=== PATIENT | female | born 2000 | race African-American/Black ===

== ENCOUNTER 2019-08-03 10:21 | Emergency (ER) | payer OTHER ==
[~2019-08-03] VITALS: Ht 180.3 cm; Wt 122.7 kg
[2019-08-03] MEDS ORDERED: IBUPROFEN 800 MG TABLET PO ONE (11:00)
[2019-08-03 11:40] LABS: INFLUENZA TYPE A NEGATIVE FOR TYPE A (NEGATIVE); INFLUENZA TYPE B NEGATIVE FOR TYPE B (NEGATIVE)
[2019-08-03 12:29] VITALS: BP 110/67
== END 2019-08-03 12:31 | disposition home or self-care (01) ==
LOC: EMS 10:24
DX: J06.9 Acute upper respiratory infection, unspecified (principal); J45.909 Unspecified asthma, uncomplicated; F17.210 Nicotine dependence, cigarettes, uncomplicated
CPT/HCPCS: 87804

== ENCOUNTER 2019-10-10 07:21 | Emergency (ER) | payer OTHER ==
[~2019-10-10] VITALS: Ht 177.8 cm; Wt 109.1 kg
[2019-10-10] MEDS ORDERED: TRAZ-257 PO (07:39)
[2019-10-10] MEDS ORDERED: VENL-68 PO (07:39)
[2019-10-10] MEDS ORDERED: LIDOCAINE 5% TRANSDERMAL PATCH TD ONE (08:00)
[2019-10-10] MEDS ORDERED: IBUPROFEN 400 MG TABLET PO ONE (08:00)
[2019-10-10] MEDS ORDERED: ONDANSETRON HCL 4 MG/2 ML VIAL IVP ONE (08:00)
[2019-10-10 09:34] VITALS: BP 119/81
== END 2019-10-10 10:19 | disposition home or self-care (01) ==
LOC: EMS 07:22
DX: M54.5 Low back pain (principal); J45.909 Unspecified asthma, uncomplicated; F17.210 Nicotine dependence, cigarettes, uncomplicated
CPT/HCPCS: 72100

== ENCOUNTER 2021-01-20 16:43 | Emergency (ER) | payer OTHER ==
[~2021-01-20] VITALS: Ht 175.3 cm; Wt 127.3 kg
[~2021-01-20 16:43] MED LIST: TRAZ-257 PO; VENL-68 PO
[2021-01-20 18:48] VITALS: BP 120/60
== END 2021-01-20 19:12 | disposition home or self-care (01) ==
LOC: EMS 16:43
DX: J02.9 Acute pharyngitis, unspecified (principal); R13.10 Dysphagia, unspecified; J45.909 Unspecified asthma, uncomplicated; F17.210 Nicotine dependence, cigarettes, uncomplicated
CPT/HCPCS: 87081; 99283

== ENCOUNTER 2024-02-03 12:38 | Emergency (ER) | payer MEDICAID ==
[~2024-02-03] VITALS: Ht 182.9 cm; Wt 139.1 kg
[~2024-02-03 12:38] MED LIST changes: +SERT-162 PO; -TRAZ-257 PO; +TRAZ150T80 PO; -VENL-68 PO
[2024-02-03 12:47] VITALS: BP 112/70; PULSE 68; RESP 20; TEMP 98.2; O2SAT 100
[2024-02-03 14:03] LABS: INFLUENZA A-RTPCR,COMBO NEGATIVE (NEGATIVE); INFLUENZA B-RTPCR,COMBO NEGATIVE (NEGATIVE); RESPIRATORY SYNCYTIAL VRS-PCR NEGATIVE (NEGATIVE); SARS COVID19 RTPCR, COMBO NEGATIVE (NEGATIVE)
[2024-02-03] MEDS ORDERED: IBUP-1554 PO (14:52)
[2024-02-03] MEDS ORDERED: BENZ-227 PO (14:52)
[2024-02-03] MEDS ORDERED: GUAIFDM PO (14:52)
[2024-02-03] MEDS ORDERED: ACET-66 PO (14:52)
[2024-02-03] MEDS: IBUPROFEN 600 MG TABLET PO ONE (14:59)
[2024-02-03] MEDS: ACETAMINOPHEN 500 MG TABLET PO ONE (14:59)
[2024-02-03] MEDS: GuaiFENesin/D-METHORPHAN [SUGAR-FREE] 200-20MG/10 ML SYRUP UDCUP PO ONE (15:13)
== END 2024-02-03 15:14 | disposition home or self-care (01) ==
LOC: EMS 12:38
DX: J06.9 Acute upper respiratory infection, unspecified (principal); J20.9 Acute bronchitis, unspecified; R05.9 Cough, unspecified; M79.10 Myalgia, unspecified site; J45.909 Unspecified asthma, uncomplicated; F17.210 Nicotine dependence, cigarettes, uncomplicated; Z86.59 Personal history of other mental and behavioral disorders; Z20.822 Contact with and (suspected) exposure to COVID-19
CPT/HCPCS: 99283; 0241U; 87430